=== PATIENT | female | born 1945 | race Hispanic/Latino ===

== ENCOUNTER → 2025-08-18 | Outpatient (CLI) | payer OTHER ==
--- NOTE | 2025-08-18 20:48 | HMCSR ---
APPROVED REPORT EXAM: Two-dimensional and M-mode echocardiogram with Doppler and color Doppler. INDICATION ICD: I38 2D Dimensions IVSd 1.0 (0.7-1.1cm) LVEF(%) 48.2 (>50%) LVED Vol(simp.) 64.2 mL LVDd 4.9 (3.8-5.6cm) FS(%) 24 % LVES Vol(simp.) 27.0 mL PWd 1.0 (0.7-1.1cm) LA (2D) 3.9 (1.6-4.0cm) LVEF(%, simp.) 58 % LVDs 3.7 (2.5-4.0cm) Ao Root(2D) 3.1 (2.0-3.7cm) LA ESV INDEX (BP) 17.40 mL/m2 LVOT diam 2.4 (1.8-2.4cm) IVC diam 1.8 cm Aortic Valve AoV Vmax 1.4 m/s Ao Peak GR 7.4 mmHg LVOT Vmax 0.8 m/s AoV VTI 0.3 m Ao Mean GR 3.9 mmHg LVOT VTI 0.16 m NHAN (VMAX) 2.67 cm2 NHAN (VTI) 2.5 cm2 Mitral Valve MV E Vmax 51.4 cm/s DECEL Time 238 ms MV A Vmax 86.9 cm/s P 1/2 T 62 ms E/A ratio 0.6 MVA (PHT) 3.5 cm2 TDI E/E' Medial 8.4 E/E' Lateral 8.8 Medial E' Peak V 6.14 cm/s Lateral E' Peak V 5.84 cm/s Tricuspid Valve TR Vmax 2.2 m/s RVSP 19.9 mmHg TR Peak GR 20.1 mmHg Left Ventricle The left ventricle is normal size. There is normal left ventricular wall thickness. LVEF is 55-60%. Stage I diastolic dysfunction. Right Ventricle The right ventricle is normal size. The right ventricular systolic function is normal. Atria The left atrium size is normal. The right atrium size is normal. Aortic Valve The aortic valve is normal in structure. No aortic regurgitation is present. There is no aortic valvular stenosis. Mitral Valve The mitral valve is normal in structure. Mitral regurgitation is trace. There is no mitral valve stenosis. Tricuspid Valve The tricuspid valve is normal in structure. There is trace tricuspid valve regurgitation noted. Pulmonic Valve The pulmonary valve is normal in structure. There is no pulmonic valvular regurgitation. Great Vessels The aortic root is normal in size. The IVC is normal in size and collapses >50% with inspiration. Pericardium There is no pericardial effusion. Conclusion LVEF is 55-60%.
== END | disposition home or self-care (01) ==
LOC: RAH 14:45
PROVIDERS: ATTEND Internal Medicine
DX: I38 Endocarditis, valve unspecified (principal)
CPT/HCPCS: 93306